=== PATIENT | female | born 1980 | race Caucasian/White ===

== ENCOUNTER 2020-04-29 05:57 | Inpatient (IN) ==
[2020-04-29] MEDS ORDERED: Famotidine 20 MG/2 ML VIAL IVP PRN (06:02)
[2020-04-29] MEDS ORDERED: Ondansetron 4 MG/2 ML VIAL IVP PRN (06:02)
[2020-04-29] MEDS ORDERED: Metoclopramide 10 MG/2 ML VIAL IVP PRN (06:02)
[2020-04-29] MEDS ORDERED: *HR* Nalbuphine 10 MG/ML AMPUL IV PRN (06:02)
[2020-04-29] MEDS ORDERED: Lidocaine 1% 20 ML MDV INFILT PRN (06:02)
[2020-04-29] MEDS ORDERED: Naloxone 0.4 MG/ML INJ IVP PRN (06:02)
[2020-04-29] MEDS ORDERED: EPHEDrine 50 MG/ML VIAL IVP PRN (06:05)
[2020-04-29] MEDS ORDERED: Ringers Solution, Lactated 1,000 ML IVC SCH (06:15)
[2020-04-29] MEDS ORDERED: Epidural Premix (fent/bupiv) 110 ML EP SCH (06:15)
[2020-04-29 06:29] LABS: Basophils % 0.3 %; Eosinophils % 0.4 %; Hematocrit 37.4 % (35.3-44.9); Hemoglobin 12.6 g/dL (11.5-15.4); Immature Granulocytes % 0.7 % (0-4); Lymphocytes # 3.6 K/mcL (0.6-4.6); Lymphocytes % 35.6 %; Mean Corpuscular HGB Conc 33.7 g/dL (31.6-35.5); Mean Corpuscular Hemoglobin 28.8 pg (28.0-33.3); Mean Corpuscular Volume 85.4 fL (83.0-100.0); Mean Platelet Volume 11.2 fL (9.4-12.4); Monocytes # 0.5 K/mcL (0.0-1.3); Monocytes % 4.6 %; Neutrophils # 5.9 K/mcL (1.6-8.9); Platelet Count 211 K/mcL (140-400); Red Blood Count 4.38 M/mcL (3.82-4.97); Red Cell Distribution Width 12.6 % (11.5-14.5); Segmented Neutrophils % 58.4 %
[2020-04-29 08:40] LABS: Influenza A PCR Negative (Negative); Influenza B PCR Negative (Negative); Resp. Syncytial Virus PCR Negative (Negative)
[2020-04-29 08:41] LABS: SARS-CoV-2 by PCR (In House) Negative (Negative)
[2020-04-29 09:45] LABS: Amphetamine Screen,Urine Negative ng/mL (Cutoff=1000); Barbiturate Screen,Urine Negative ng/mL (Cutoff=200); Benzodiazepines Screen,Urine Negative ng/mL (Cutoff=200); Cannabinoid Screen,Urine Negative ng/mL (Cutoff = 50); Cocaine Screen,Urine Negative ng/mL (Cutoff= 300); Opiate Screen,Urine Negative ng/mL (Cutoff=300); Phencyclidine Screen,Urine Negative ng/mL (Cutoff=25)
[2020-04-29] MEDS ORDERED: Methylergonovine 0.2 MG/ML AMPUL IM ONE ×2 (11:11→16:55)
[2020-04-29] MEDS: Oxytocin 20 units/ LR 1000 mL 20 UNIT/1,000 ML BAG IVC SCH ×2 (13:21→15:14)
[2020-04-29] MEDS ORDERED: *HR* FentaNYL (PF) 100 MCG/2 ML VIAL EP ONE (13:46)
[2020-04-29] MEDS ORDERED: Ropivacaine/PF 0.2% 20 ML VIAL EP ONE (13:46)
[2020-04-29] MEDS ORDERED: Ropivacaine/PF 0.2% 20 ML VIAL ONE (13:53)
[2020-04-29] MEDS ORDERED: *HR* FentaNYL (PF) 100 MCG/2 ML VIAL ONE (13:53)
[2020-04-29] MEDS ORDERED: Rho Immune Globulin 1,500 UNIT SYRINGE IM PRN (16:55)
[2020-04-29] MEDS ORDERED: Sennosides 8.6 MG TABLET PO PRN (16:55)
[2020-04-29] MEDS ORDERED: Benzocaine/Menthol 56 GM AEROSOL SPRAY TP PRN (16:55)
[2020-04-29] MEDS ORDERED: Oxytocin 20 units/ LR 1000 mL 20 UNIT/1,000 ML BAG IVC SCH (16:55)
[2020-04-29] MEDS ORDERED: Measles/Mumps/Rubella Vacc 0.5 ML VIAL SQ PRN (16:55)
[2020-04-29] MEDS ORDERED: Oxytocin 20 units/ LR 1000 mL 20 UNIT/1,000 ML BAG IVC ONE (16:55)
[2020-04-29] MEDS ORDERED: Lanolin 7 G OINT...G. TP PRN (16:55)
[2020-04-29] MEDS: Ibuprofen 600 MG TABLET PO SCH (18:44)
[2020-04-29] MEDS: Acetaminophen 325 MG TABLET PO SCH (21:10)
[2020-04-30] MEDS: Ibuprofen 600 MG TABLET PO SCH ×2 (01:48→07:47)
[2020-04-30 05:35] LABS: Basophils % 0.2 %; Eosinophils # 0.1 K/mcL (0.0-0.6); Eosinophils % 0.8 %; Hematocrit 30.4 % (35.3-44.9); Immature Granulocytes % 0.6 % (0-4); Lymphocytes # 3.3 K/mcL (0.6-4.6); Lymphocytes % 30.4 %; Mean Corpuscular HGB Conc 33.6 g/dL (31.6-35.5); Mean Corpuscular Hemoglobin 29.5 pg (28.0-33.3); Mean Corpuscular Volume 87.9 fL (83.0-100.0); Mean Platelet Volume 11.3 fL (9.4-12.4); Monocytes # 0.8 K/mcL (0.0-1.3); Monocytes % 7.6 %; Neutrophils # 6.6 K/mcL (1.6-8.9); Platelet Count 169 K/mcL (140-400); Red Blood Count 3.46 M/mcL (3.82-4.97); Red Cell Distribution Width 12.7 % (11.5-14.5); Segmented Neutrophils % 60.4 %; White Blood Count 10.9 K/mcL (4.3-11.1)
[2020-04-30 05:36] LABS: Hemoglobin 10.2 g/dL (11.5-15.4)
[2020-04-30 08:10] VITALS: BP 110/66
[2020-04-30] MEDS ORDERED: Prenatal Vit/FA 1 EACH TABLET PO SCH (09:00)
[2020-04-30] MEDS: Acetaminophen 325 MG TABLET PO SCH (10:47)
== END 2020-04-30 16:16 | disposition home or self-care (01) | DRG 807 ==
LOC: 1NENULAB 05:57 → 1NENUOBS 19:52
PROVIDERS: ADMIT Student in an Organized Health Care Education/Training Program; ATTEND Student in an Organized Health Care Education/Training Program